=== PATIENT | male | born 1970 | race Hispanic/Latino ===

== ENCOUNTER → 2021-06-06 | Outpatient (CLI) | payer SELFPAY ==
[~2021-06-06] MED LIST: AMLODIPINE BESY10 MG PO; GLIPIZIDE5 MG PO; LOSARTAN POTAS100 MG PO; METOPROLOL TART50 MG PO; SIMVASTATIN20 MG PO; Z.0.LISINOPRIL20 MG PO; [UNRECOGNIZED DRUG - OTHER]
== END ==
LOC: RAD 15:38
PROVIDERS: ATTEND Family Medicine
DX: U07.1 COVID-19 (principal)
CPT/HCPCS: 71046

== ENCOUNTER 2021-06-09 12:24 | Inpatient (IN) | payer SELFPAY ==
[~2021-06-09] VITALS: Ht 180.3 cm; Wt 136.3 kg
[~2021-06-09 12:24] MED LIST changes: -GLIPIZIDE5 MG PO
[2021-06-09] MEDS ORDERED: DEXAMETHASONE SOD PHOS 10 MG/1 ML VIAL IV ONE (13:00)
[2021-06-09 14:33] LABS: BASOPHILS % 0.2 % (0.0-1.0); EOSINOPHILS % 0.1 % (0.0-6.0); HEMATOCRIT 42.9 % (38.2-49.6); HEMOGLOBIN 14.3 g/dL (14.0-18.0); LYMPHOCYTES # (AUTO) 0.8 (1.0-3.2); LYMPHOCYTES % 9.8 % (18.0-39.1); MEAN CORPUSCULAR HEMOGLOBIN 29.9 pg (28-32); MEAN CORPUSCULAR HGB CONC 33.3 g/dL (31-35); MEAN CORPUSCULAR VOLUME 89.7 fL (81-99); MONOCYTES # (AUTO) 0.3 (0.2-0.8); MONOCYTES % 4.1 % (4.4-11.3); NEUTROPHILS # (AUTO) 6.9 (2.1-6.9); NEUTROPHILS % 85.3 % (38.7-80.0); PLATELET COUNT 215 x10e3/uL (140-360); RED BLOOD COUNT 4.78 x10e6/uL (4.3-5.7); RED CELL DISTRIBUTION WIDTH 13.2 % (11.7-14.4)
[2021-06-09] MEDS ORDERED: SODIUM CHLORIDE FLUSH 10 ML SYR INJ PRN (14:45)
[2021-06-09 14:54] LABS: ALANINE AMINOTRANSFERASE 44 IU/L (0-55); ALBUMIN 3.5 g/dL (3.5-5.0); ALBUMIN/GLOBULIN RATIO 0.9 (0.8-2.0); ALKALINE PHOSPHATASE 47 IU/L (40-150); ANION GAP 15.4 mmol/L (8-16); BLOOD UREA NITROGEN 21 mg/dL (7-26); BUN/CREATININE RATIO 18 (6-25); CALCIUM 8.6 mg/dL (8.4-10.2); CARBON DIOXIDE 26 mmol/L (22-29); CHLORIDE 101 mmol/L (98-107); CREATINE KINASE 65 IU/L (30-200); CREATININE, SERUM 1.16 mg/dL (0.72-1.25); EST GLOMERULAR FILTRATION RATE 66 ML/MIN (60-); GLUCOSE 224 mg/dL (74-118); POTASSIUM 3.4 mmol/L (3.5-5.1); SODIUM 139 mmol/L (136-145)
[2021-06-09] MEDS ORDERED: DEXTROSE 50% SYRINGE 50 ML IV PRN (17:15)
[2021-06-09 20:00] VITALS: BP 135/83
[2021-06-09 21:00] VITALS: BP 135/83
[2021-06-09] MEDS ORDERED: PNEUMOCOCCAL VACCINE POLYVALENT 23 MCG/0.5 ML VIAL IM SCH (21:08)
[2021-06-09] MEDS: SIMVASTATIN 20 MG TAB PO SCH (21:40)
[2021-06-09] MEDS: INSULIN REGULAR, HUMAN 100 UNIT/1 ML SQ SCH (21:40)
[2021-06-09 22:39] LABS: CREATINE KINASE 67 IU/L (30-200)
[2021-06-09 22:57] VITALS: BP 135/83
[2021-06-10] VITALS (10 sets, daily range): BP systolic 102–167; BP diastolic 67–101
[2021-06-10] MEDS ORDERED: GLIPIZIDE5 MG PO (00:10)
[2021-06-10 06:23] LABS: CREATINE KINASE MB 0.9 ng/mL (0-5.0)
[2021-06-10] MEDS: INSULIN REGULAR, HUMAN 100 UNIT/1 ML SQ SCH ×4 (07:30→20:51)
[2021-06-10] MEDS: LOSARTAN POTASSIUM 100 MG TAB PO SCH (09:00)
[2021-06-10] MEDS: LOSARTAN POTASSIUM 25 MG TAB PO SCH (09:00)
[2021-06-10] MEDS: AMLODIPINE BESYLATE 10 MG TAB PO SCH (09:00)
[2021-06-10] MEDS: METOPROLOL TARTRATE 50 MG TAB PO SCH (09:00)
[2021-06-10] MEDS ORDERED: REMDESIVIR 200MG 200 MG in SODIUM CHLORIDE 0.9% 100 ML 100 ML IV ONE (12:00)
[2021-06-10] MEDS: DEXAMETHASONE SOD PHOS 10 MG/1 ML VIAL IV SCH (12:06)
[2021-06-10] MEDS: CEFTRIAXONE 1 GM in SODIUM CHLORIDE 0.9% 50ML 50 ML IV SCH (12:06)
[2021-06-10] MEDS: ASCORBIC ACID 500 MG TAB PO SCH (12:30)
[2021-06-10] MEDS: ZINC SULFATE 220 MG CAP PO SCH (12:30)
[2021-06-10 16:13] LABS: CREATINE KINASE MB 1.5 ng/mL (0-5.0)
[2021-06-10] MEDS ORDERED: DEXTROSE 50% SYRINGE 50 ML IV PRN (16:45)
[2021-06-10] MEDS: GLIPIZIDE 5 MG TAB PO SCH (20:56)
[2021-06-10] MEDS: SIMVASTATIN 20 MG TAB PO SCH (20:56)
[2021-06-11] VITALS (7 sets, daily range): BP systolic 123–147; BP diastolic 77–90
[2021-06-11 05:50] LABS: BASOPHILS % 0.2 % (0.0-1.0); HEMATOCRIT 45.6 % (38.2-49.6); HEMOGLOBIN 14.8 g/dL (14.0-18.0); LYMPHOCYTES # (AUTO) 1.8 (1.0-3.2); LYMPHOCYTES % 15.7 % (18.0-39.1); MEAN CORPUSCULAR HEMOGLOBIN 29.3 pg (28-32); MEAN CORPUSCULAR HGB CONC 32.5 g/dL (31-35); MEAN CORPUSCULAR VOLUME 90.3 fL (81-99); MONOCYTES # (AUTO) 0.7 (0.2-0.8); MONOCYTES % 6.5 % (4.4-11.3); NEUTROPHILS # (AUTO) 8.8 (2.1-6.9); NEUTROPHILS % 76.7 % (38.7-80.0); PLATELET COUNT 357 x10e3/uL (140-360); RED BLOOD COUNT 5.05 x10e6/uL (4.3-5.7); RED CELL DISTRIBUTION WIDTH 13.2 % (11.7-14.4)
[2021-06-11 06:21] LABS: ANION GAP 15.7 mmol/L (8-16); CALCIUM 8.9 mg/dL (8.4-10.2); CREATININE, SERUM 1.07 mg/dL (0.72-1.25); POTASSIUM 3.7 mmol/L (3.5-5.1)
[2021-06-11] MEDS: INSULIN REGULAR, HUMAN 100 UNIT/1 ML SQ SCH ×4 (08:29→20:12)
[2021-06-11] MEDS: CEFTRIAXONE 1 GM in SODIUM CHLORIDE 0.9% 50ML 50 ML IV SCH (09:10)
[2021-06-11] MEDS: DEXAMETHASONE SOD PHOS 10 MG/1 ML VIAL IV SCH (09:12)
[2021-06-11] MEDS: LOSARTAN POTASSIUM 100 MG TAB PO SCH (09:13)
[2021-06-11] MEDS: AMLODIPINE BESYLATE 10 MG TAB PO SCH (09:13)
[2021-06-11] MEDS: LOSARTAN POTASSIUM 25 MG TAB PO SCH (09:13)
[2021-06-11] MEDS: METOPROLOL TARTRATE 50 MG TAB PO SCH (09:13)
[2021-06-11] MEDS: ASCORBIC ACID 500 MG TAB PO SCH (09:13)
[2021-06-11] MEDS: ENOXAPARIN SOD INJ 40 MG/0.4 ML SYR SC SCH (09:14)
[2021-06-11] MEDS: ZINC SULFATE 220 MG CAP PO SCH (09:14)
[2021-06-11] MEDS: REMDESIVIR 100MG 100 MG in SODIUM CHLORIDE 0.9% 100 ML 100 ML IV SCH (16:01)
[2021-06-11] MEDS: SIMVASTATIN 20 MG TAB PO SCH (20:43)
[2021-06-12] VITALS (8 sets, daily range): BP systolic 133–152; BP diastolic 74–88
[2021-06-12] MEDS: INSULIN REGULAR, HUMAN 100 UNIT/1 ML SQ SCH ×4 (07:30→20:40)
[2021-06-12] MEDS: GLIPIZIDE 5 MG TAB PO SCH (07:59)
[2021-06-12] MEDS: ENOXAPARIN SOD INJ 40 MG/0.4 ML SYR SC SCH (10:45)
[2021-06-12] MEDS: ZINC SULFATE 220 MG CAP PO SCH (10:45)
[2021-06-12] MEDS: ASCORBIC ACID 500 MG TAB PO SCH (10:45)
[2021-06-12] MEDS: AMLODIPINE BESYLATE 10 MG TAB PO SCH (10:45)
[2021-06-12] MEDS: CEFTRIAXONE 1 GM in SODIUM CHLORIDE 0.9% 50ML 50 ML IV SCH (10:46)
[2021-06-12] MEDS: METOPROLOL TARTRATE 50 MG TAB PO SCH (10:46)
[2021-06-12] MEDS: LOSARTAN POTASSIUM 100 MG TAB PO SCH (10:46)
[2021-06-12] MEDS: LOSARTAN POTASSIUM 25 MG TAB PO SCH (10:46)
[2021-06-12] MEDS: DEXAMETHASONE SOD PHOS 10 MG/1 ML VIAL IV SCH (10:52)
[2021-06-12] MEDS: REMDESIVIR 100MG 100 MG in SODIUM CHLORIDE 0.9% 100 ML 100 ML IV SCH (14:20)
[2021-06-12] MEDS: SIMVASTATIN 20 MG TAB PO SCH (20:40)
[2021-06-13] VITALS (9 sets, daily range): BP systolic 130–150; BP diastolic 79–91
[2021-06-13] MEDS: INSULIN REGULAR, HUMAN 100 UNIT/1 ML SQ SCH ×4 (07:30→21:18)
[2021-06-13] MEDS: GLIPIZIDE 5 MG TAB PO SCH (08:32)
[2021-06-13] MEDS: LOSARTAN POTASSIUM 100 MG TAB PO SCH (08:34)
[2021-06-13] MEDS: DEXAMETHASONE SOD PHOS 10 MG/1 ML VIAL IV SCH (08:34)
[2021-06-13] MEDS: ZINC SULFATE 220 MG CAP PO SCH (08:35)
[2021-06-13] MEDS: ASCORBIC ACID 500 MG TAB PO SCH (08:35)
[2021-06-13] MEDS: METOPROLOL TARTRATE 50 MG TAB PO SCH (08:35)
[2021-06-13] MEDS: AMLODIPINE BESYLATE 10 MG TAB PO SCH (08:35)
[2021-06-13] MEDS: LOSARTAN POTASSIUM 25 MG TAB PO SCH (08:35)
[2021-06-13] MEDS: ENOXAPARIN SOD INJ 40 MG/0.4 ML SYR SC SCH (08:36)
[2021-06-13] MEDS: REMDESIVIR 100MG 100 MG in SODIUM CHLORIDE 0.9% 100 ML 100 ML IV SCH (14:34)
[2021-06-13] MEDS: SIMVASTATIN 20 MG TAB PO SCH (21:12)
[2021-06-14] VITALS (8 sets, daily range): BP systolic 131–154; BP diastolic 76–98
[2021-06-14 06:05] LABS: BASOPHILS # (AUTO) 0.1 (0.0-0.1); BASOPHILS % 0.4 % (0.0-1.0); EOSINOPHILS # (AUTO) 0.2 (0.0-0.4); EOSINOPHILS % 1.9 % (0.0-6.0); HEMATOCRIT 45.6 % (38.2-49.6); HEMOGLOBIN 14.8 g/dL (14.0-18.0); LYMPHOCYTES # (AUTO) 1.9 (1.0-3.2); LYMPHOCYTES % 16.3 % (18.0-39.1); MEAN CORPUSCULAR HEMOGLOBIN 29.2 pg (28-32); MEAN CORPUSCULAR HGB CONC 32.5 g/dL (31-35); MEAN CORPUSCULAR VOLUME 89.9 fL (81-99); MONOCYTES # (AUTO) 0.8 (0.2-0.8); MONOCYTES % 7.1 % (4.4-11.3); NEUTROPHILS # (AUTO) 8.1 (2.1-6.9); NEUTROPHILS % 68.7 % (38.7-80.0); PLATELET COUNT 368 x10e3/uL (140-360); RED BLOOD COUNT 5.07 x10e6/uL (4.3-5.7)
[2021-06-14 06:30] LABS: ALBUMIN 3.1 g/dL (3.5-5.0); ALBUMIN/GLOBULIN RATIO 0.9 (0.8-2.0); ANION GAP 14.6 mmol/L (8-16); CALCIUM 8.7 mg/dL (8.4-10.2); CREATININE, SERUM 0.94 mg/dL (0.72-1.25); POTASSIUM 4.6 mmol/L (3.5-5.1)
[2021-06-14] MEDS: LOSARTAN POTASSIUM 100 MG TAB PO SCH (09:45)
[2021-06-14] MEDS: GLIPIZIDE 5 MG TAB PO SCH (09:45)
[2021-06-14] MEDS: DEXAMETHASONE SOD PHOS 10 MG/1 ML VIAL IV SCH (09:45)
[2021-06-14] MEDS: METOPROLOL TARTRATE 50 MG TAB PO SCH (09:46)
[2021-06-14] MEDS: LOSARTAN POTASSIUM 25 MG TAB PO SCH (09:46)
[2021-06-14] MEDS: ZINC SULFATE 220 MG CAP PO SCH (09:47)
[2021-06-14] MEDS: ENOXAPARIN SOD INJ 40 MG/0.4 ML SYR SC SCH (09:47)
[2021-06-14] MEDS: ASCORBIC ACID 500 MG TAB PO SCH (09:47)
[2021-06-14] MEDS: AMLODIPINE BESYLATE 10 MG TAB PO SCH (09:47)
[2021-06-14] MEDS: INSULIN REGULAR, HUMAN 100 UNIT/1 ML SQ SCH ×4 (09:49→21:52)
[2021-06-14 12:01] LABS: LYMPHOCYTES % (MANUAL) 10 % (19-48); MONOCYTES % (MANUAL) 10 % (3.4-9.0); NEUTROPHILS % (MANUAL) 73 % (40-74); PLATELET ESTIMATE ADEQUATE; PLATELET MORPHOLOGY COMMENT NORMAL; RBC MORPHOLOGY COMMENT NORMAL
[2021-06-14] MEDS: REMDESIVIR 100MG 100 MG in SODIUM CHLORIDE 0.9% 100 ML 100 ML IV SCH (14:44)
[2021-06-14] MEDS: SIMVASTATIN 20 MG TAB PO SCH (21:49)
[2021-06-15] VITALS: BP 125/62
[2021-06-15 04:00] VITALS: BP 139/84
[2021-06-15 07:55] VITALS: BP 133/88
[2021-06-15] MEDS: INSULIN REGULAR, HUMAN 100 UNIT/1 ML SQ SCH ×2 (08:00→11:55)
[2021-06-15 08:12] VITALS: BP 133/88
[2021-06-15] MEDS: DEXAMETHASONE SOD PHOS 10 MG/1 ML VIAL IV SCH (09:18)
[2021-06-15] MEDS: GLIPIZIDE 5 MG TAB PO SCH (09:18)
[2021-06-15] MEDS: LOSARTAN POTASSIUM 100 MG TAB PO SCH (09:19)
[2021-06-15] MEDS: LOSARTAN POTASSIUM 25 MG TAB PO SCH (09:19)
[2021-06-15] MEDS: ENOXAPARIN SOD INJ 40 MG/0.4 ML SYR SC SCH (09:20)
[2021-06-15] MEDS: AMLODIPINE BESYLATE 10 MG TAB PO SCH (09:20)
[2021-06-15] MEDS: ASCORBIC ACID 500 MG TAB PO SCH (09:20)
[2021-06-15] MEDS: ZINC SULFATE 220 MG CAP PO SCH (09:20)
[2021-06-15] MEDS: METOPROLOL TARTRATE 50 MG TAB PO SCH (09:20)
[2021-06-15 09:45] LABS: BASOPHILS % 0.3 % (0.0-1.0); EOSINOPHILS # (AUTO) 0.3 (0.0-0.4); EOSINOPHILS % 2.7 % (0.0-6.0); LYMPHOCYTES # (AUTO) 1.8 (1.0-3.2); LYMPHOCYTES % 15.3 % (18.0-39.1); MEAN CORPUSCULAR HEMOGLOBIN 29.3 pg (28-32); MEAN CORPUSCULAR HGB CONC 32.6 g/dL (31-35); MEAN CORPUSCULAR VOLUME 89.8 fL (81-99); MONOCYTES # (AUTO) 0.6 (0.2-0.8); MONOCYTES % 5.1 % (4.4-11.3); NEUTROPHILS # (AUTO) 8.3 (2.1-6.9); NEUTROPHILS % 72.2 % (38.7-80.0); PLATELET COUNT 402 x10e3/uL (140-360); RED BLOOD COUNT 5.12 x10e6/uL (4.3-5.7); RED CELL DISTRIBUTION WIDTH 13.1 % (11.7-14.4)
[2021-06-15 10:12] LABS: ALBUMIN 3.2 g/dL (3.5-5.0); ANION GAP 15.2 mmol/L (8-16); CALCIUM 8.9 mg/dL (8.4-10.2); CREATININE, SERUM 0.87 mg/dL (0.72-1.25); POTASSIUM 4.2 mmol/L (3.5-5.1)
[2021-06-15 12:06] VITALS: BP 131/95
[2021-06-15] MEDS ORDERED: DEXAMETHASONE4 MG PO (12:34)
[2021-06-15] MEDS ORDERED: ZITHROMAX250 MG PO (12:34)
== END 2021-06-15 13:38 | disposition home or self-care (01) | DRG 177 ==
LOC: ER 13:28 → ERHOLD 14:34 → MED/SURG3 18:23
PROC: XW043E5 Introduction of Remdesivir Anti-infective into Central Vein, Percutaneous Approach, New Technology Group 5 (ICD-10-PCS; principal; 2021-06-09)
PROC: 8E0ZXY6 Isolation (ICD-10-PCS; 2021-06-09)
DX: U07.1 COVID-19 (principal); J96.01 Acute respiratory failure with hypoxia; J12.82 Pneumonia due to coronavirus disease 2019; Z68.42 Body mass index [BMI] 45.0-49.9, adult; E66.01 Morbid (severe) obesity due to excess calories; E11.9 Type 2 diabetes mellitus without complications; K76.0 Fatty (change of) liver, not elsewhere classified; I11.9 Hypertensive heart disease without heart failure
CPT/HCPCS: 36415; 71045; 80048; 80053; 82550; 82553; 82948; 84484; 85025; 86140; 87040; 87070; 87205; 93005; 99284; J0456; J0696; J1100; J1650; J1817; J7050; U0002

== ENCOUNTER → 2021-06-27 | Outpatient (CLI) | payer SELFPAY ==
[~2021-06-27] MED LIST changes: +DEXAMETHASONE4 MG PO; +GLIPIZIDE5 MG PO; +ZITHROMAX250 MG PO
== END ==
LOC: RAD 09:52
PROVIDERS: ATTEND Family Medicine
DX: J12.82 Pneumonia due to coronavirus disease 2019 (principal); J96.01 Acute respiratory failure with hypoxia
CPT/HCPCS: 71046

== ENCOUNTER → 2022-01-16 | Day surgery (SDC) | payer SELFPAY ==
[~2022-01-16] MED LIST changes: +FENTANYL CITRATE/PF 100MCG/2 ML INJ ONE; +HYOSCYAMINE SULFATE 0.5 MG/ML INJ ONE; +LABETALOL HCL 5 MG/ML 20ML VIAL ONE; +LIDOCAINE HCL 2% LOCAL INJ 5 ML SDV VIAL INJ ONE; +MIDAZOLAM HCL 2 MG/2 ML VIAL ONE; +PROPOFOL IV EMULSION 10 MG/ML 20 ML VIAL ONE; +TERBINAFINE HC250 MG PO
[2022-01-16 10:22] VITALS: BP 152/96
== END | disposition home or self-care (01) ==
LOC: OR 07:28
PROVIDERS: ATTEND Internal Medicine Gastroenterology
DX: Z12.11 Encounter for screening for malignant neoplasm of colon (principal); K63.5 Polyp of colon; K64.8 Other hemorrhoids; Z71.3 Dietary counseling and surveillance; K76.0 Fatty (change of) liver, not elsewhere classified; E11.9 Type 2 diabetes mellitus without complications; I10 Essential (primary) hypertension; E78.5 Hyperlipidemia, unspecified; Z91.013 Allergy to seafood; Z88.8 Allergy status to other drugs, medicaments and biological substances; Z01.810 Encounter for preprocedural cardiovascular examination; Z01.812 Encounter for preprocedural laboratory examination; Z20.822 Contact with and (suspected) exposure to COVID-19; Z79.84 Long term (current) use of oral hypoglycemic drugs; Z79.899 Other long term (current) drug therapy; Z68.41 Body mass index [BMI] 40.0-44.9, adult; Z87.01 Personal history of pneumonia (recurrent); Z86.16 Personal history of COVID-19; Z80.0 Family history of malignant neoplasm of digestive organs
CPT/HCPCS: 36415; 45380; 45385; 82948; 93005; J1980; J2001; J2250; J2704; J3010; J3490; U0002; 45378